=== PATIENT | female | born 1985 | race Caucasian/White ===

== ENCOUNTER 2018-01-24 14:10 | Emergency (ER) | END 2018-01-24 20:45 | disposition home or self-care (01) ==

== ENCOUNTER 2018-01-26 23:59 | Emergency (ER) | END 2018-01-27 02:07 | disposition home or self-care (01) ==

== ENCOUNTER 2018-02-03 03:46 | Day surgery (SDC) | END 2018-02-03 09:50 | disposition home or self-care (01) ==